=== PATIENT | male | born 1960 | race Caucasian/White ===

== ENCOUNTER 2021-10-25 14:27 | Emergency (ER) | payer OTHER ==
[2021-10-25 14:45] VITALS: BP 144/69; PULSE 64; TEMP 98.1; BMI 34.7
[2021-10-25] MEDS ORDERED: IBUPROFEN 600 MG TABLET (FP) PO ONE ×2 (15:10→15:12)
== END 2021-10-25 15:57 | disposition home or self-care (01) ==
LOC: JERFT 14:27
DX: M79.644 Pain in right finger(s) (principal)
CPT/HCPCS: 73130-TC-RT-FY; 99284-25

== ENCOUNTER 2022-03-12 12:24 | Emergency (ER) | payer OTHER ==
[2022-03-12 12:31] VITALS: BP 139/69; PULSE 71; RESP 18; TEMP 97.6; BMI 33.6
== END 2022-03-12 13:08 | disposition home or self-care (01) ==
LOC: JERFT 12:24 → JER 12:24 → JERFT 13:08
DX: B35.4 Tinea corporis (principal)
CPT/HCPCS: 99281-25

== ENCOUNTER → 2022-09-21 | Emergency (ER) | payer OTHER ==
[~2022-09-21] MED LIST: KETOROLAC TROMETHAMINE 30 MG/1 ML VIAL IM ONE; KETOROLAC TROMETHAMINE 30 MG/1 ML VIAL ONE; LIDOCAINE 5% TOPICAL PATCH ONE; LIDOCAINE 5% TOPICAL PATCH TP ONE; LIDOCAINE PATCH REMOVAL MC SCH
[2022-09-21 14:42] VITALS: BP 112/69; PULSE 83; RESP 19; TEMP 98; BMI 31.1
== END | disposition left against medical advice (07) ==
LOC: JER 14:30
PROC: 3E0233Z Introduction of Anti-inflammatory into Muscle, Percutaneous Approach (ICD-10-PCS; principal; 2022-09-21)
DX: M54.12 Radiculopathy, cervical region (principal); R20.2 Paresthesia of skin
CPT/HCPCS: 72125-TC; 99284-25

== ENCOUNTER 2022-10-31 15:18 | Emergency (ER) | payer OTHER ==
[2022-10-31 15:27] VITALS: BP 129/69; PULSE 73; RESP 20; TEMP 99; BMI 30.9
[2022-10-31] MEDS ORDERED: ACETAMINOPHEN 1000 MG/100 ML BAG IVPB ONE (16:25)
[2022-10-31] MEDS ORDERED: SODIUM CHLORIDE 1,000 ML IV STA (16:25)
[2022-10-31] MEDS ORDERED: ACETAMINOPHEN INJECTION 100 ML IVPB ONE (16:28)
[2022-10-31 16:53] LABS: BASO % 0.3 % (0-2.0); EOS % 0.9 % (0-4.5); HEMATOCRIT 39.9 % (35.4-49); HEMOGLOBIN 13.7 GM/dL (11.7-16.9); LYMPH % 29.7 % (8-40); MCH 33.2 pg (25.7-33.7); MCHC 34.3 g/dl (32.0-35.9); MEAN CELL VOLUME 96.7 fl (80-96); MEAN PLT VOLUME 8.3 fl (7.5-11.1); NEUT % 60.1 % (42.8-82.8); PLATELET COUNT 255 10^3/uL (134-434); RBC 4.13 M/mm3 (4.00-5.60); RDW 15.1 % (11.9-15.9); URINE APPEARANCE CLEAR; URINE BILIRUBIN NEGATIVE (NEGATIVE); URINE COLOR YELLOW; URINE GLUCOSE (UA) NEGATIVE (NEGATIVE); URINE KETONE NEGATIVE (NEGATIVE); URINE LEUK ESTERASE NEGATIVE (NEGATIVE); URINE NITRITE NEGATIVE (NEGATIVE); URINE PROTEIN NEGATIVE (NEGATIVE); URINE UROBILINOGEN 0.2 mg/dL (0.2-1.0); WHITE BLOOD COUNT 7.9 K/mm3 (4.0-10.0)
[2022-10-31 17:12] LABS: POTASSIUM 4.1 mmol/L (3.5-5.1)
[2022-10-31 17:14] LABS: CALCIUM 8.9 mg/dL (8.5-10.1)
[2022-10-31 17:17] LABS: CREATININE 0.9 mg/dL (0.55-1.3)
[2022-10-31 17:19] LABS: BILIRUBIN,TOTAL 0.4 mg/dL (0.2-1); TOT PROT 7.3 g/dl (6.4-8.2)
== END 2022-10-31 19:15 | disposition home or self-care (01) ==
LOC: JER 15:18
PROC: 3E033NZ Introduction of Analgesics, Hypnotics, Sedatives into Peripheral Vein, Percutaneous Approach (ICD-10-PCS; principal; 2022-10-31)
PROC: 3E0337Z Introduction of Electrolytic and Water Balance Substance into Peripheral Vein, Percutaneous Approach (ICD-10-PCS; 2022-10-31)
DX: R10.32 Left lower quadrant pain (principal); N40.0 Benign prostatic hyperplasia without lower urinary tract symptoms
CPT/HCPCS: 36415; 74177-TC; 80053; 81003; 83690; 85025; 87086; 99285-25; Q9967

== ENCOUNTER 2023-01-07 19:17 | Emergency (ER) | payer OTHER ==
[2023-01-07 19:22] VITALS: BP 124/76; PULSE 63; RESP 18; TEMP 98.1; BMI 30.8
[2023-01-07] MEDS ORDERED: KETOROLAC TROMETHAMINE 30 MG/1 ML VIAL IM ONE (20:09)
[2023-01-07] MEDS ORDERED: AMOX TR/POT CLAV 875MG/125MG TABLETS (FP) PO ONE (20:10)
[2023-01-07] MEDS ORDERED: AMOX TR/POT CLAV 875MG/125MG TABLETS (FP) ONE (20:13)
[2023-01-07] MEDS ORDERED: KETOROLAC TROMETHAMINE 30 MG/1 ML VIAL ONE (20:13)
== END 2023-01-07 20:30 | disposition home or self-care (01) ==
LOC: JERFT 19:17
PROC: 3E0233Z Introduction of Anti-inflammatory into Muscle, Percutaneous Approach (ICD-10-PCS; principal; 2023-01-07)
DX: D17.1 Benign lipomatous neoplasm of skin and subcutaneous tissue of trunk (principal); L03.319 Cellulitis of trunk, unspecified
CPT/HCPCS: 99284-25

== ENCOUNTER 2024-05-31 10:27 | Emergency (ER) | payer BC, OTHER ==
[2024-05-31 10:48] VITALS: BP 153/71; PULSE 72; RESP 18; TEMP 98.4; BMI 30.2
[2024-05-31] MEDS ORDERED: ACETAMINOPHEN 500 MG TABLET (FP) ONE (12:02)
[2024-05-31] MEDS: ACETAMINOPHEN 500 MG TABLET (FP) PO ONE (12:08)
[2024-05-31 13:39] LABS: HIV INTERPRETATION NEGATIVE (NEGATIVE)
== END 2024-05-31 13:31 | disposition home or self-care (01) ==
LOC: JERFT 10:27
DX: S60.221A Contusion of right hand, initial encounter (principal); Y04.0XXA Assault by unarmed brawl or fight, initial encounter
CPT/HCPCS: 36415; 73130-TC-RT-FY; 86803; 87389; 99284-25